=== PATIENT | female | born 1990 | race Hispanic/Latino ===

== ENCOUNTER 2018-03-10 09:26 | Emergency (ER) | payer SELFPAY ==
[~2018-03-10] VITALS: Ht 160 cm; Wt 90.3 kg
[2018-03-10] MEDS ORDERED: SODIUM CHLORIDE 0.9% 1000ML 1,000 ML IV STA (09:33)
[2018-03-10 10:01] LABS: BASOPHILS % 0.2 % (0.0-1.0); EOSINOPHILS % 0.2 % (0.0-6.0); HEMATOCRIT 31.6 % (34.2-44.1); HEMOGLOBIN 9.8 g/dL (12.0-16.0); LYMPHOCYTES # (AUTO) 0.9 (1.0-3.2); LYMPHOCYTES % 8.8 % (18.0-39.1); MEAN CORPUSCULAR HEMOGLOBIN 25.5 pg (28-32); MEAN CORPUSCULAR VOLUME 82.3 fL (81-99); MONOCYTES # (AUTO) 0.4 (0.2-0.8); MONOCYTES % 3.8 % (4.4-11.3); NEUTROPHILS # (AUTO) 9.1 (2.1-6.9); NEUTROPHILS % 86.5 % (38.7-80.0); PLATELET COUNT 251 x10e3/uL (140-360); RED BLOOD COUNT 3.84 x10e6/uL (3.6-5.1); RED CELL DISTRIBUTION WIDTH 19.2 % (11.7-14.4)
[2018-03-10] MEDS ORDERED: FAMOTIDINE 20 MG/2 ML VIAL IV ONE (10:15)
[2018-03-10] MEDS ORDERED: ONDANSETRON HCL INJ 2 MG/ML VIAL IV ONE (10:15)
[2018-03-10] MEDS ORDERED: KETOROLAC TROMETHAMINE 30 MG/ML VIAL IV ONE (10:15)
[2018-03-10 10:21] LABS: ALANINE AMINOTRANSFERASE 8 IU/L (0-55); ALBUMIN 3.9 g/dL (3.5-5.0); ALBUMIN/GLOBULIN RATIO 1.2 (0.8-2.0); ALKALINE PHOSPHATASE 38 IU/L (40-150); AMYLASE 41 U/L (25-125); ANION GAP 12.8 mmol/L (8-16); BLOOD UREA NITROGEN 11 mg/dL (7-26); BUN/CREATININE RATIO 13 (6-25); CALCIUM 9.1 mg/dL (8.4-10.2); CARBON DIOXIDE 23 mmol/L (22-29); CHLORIDE 108 mmol/L (98-107); CREATININE, SERUM 0.83 mg/dL (0.57-1.11); EST GLOMERULAR FILTRATION RATE > 60 ML/MIN (60-); GLUCOSE 127 mg/dL (74-118); LIPASE 18 U/L (8-78); POTASSIUM 3.8 mmol/L (3.5-5.1); SODIUM 140 mmol/L (136-145)
[2018-03-10 12:22] LABS: AMYLASE 41 U/L (25-125); LIPASE 18 U/L (8-78)
--- NOTE | 2018-03-10 13:03 | Diagnostic Imaging Report ---
EXAM: Obstetric Pelvic Ultrasound INDICATION: ^, look for ectopic COMPARISON: None TECHNIQUE: Transabdominal and transvaginal evaluation of the pelvis was performed in the transverse and longitudinal planes. CLINICAL HISTORY: 27 year old GG1, P1, A0; last menstrual period: 02/01/2018 FINDINGS: Uterus: Orientation: Normal Size: 8.2 x 4.2 x 4.9 cm, normal Mass: None Cervix: Nabothian cyst Endometrial stripe: 0.8 cm. Homogeneous echotexture, without focal thickening. Gestational Sac: Not visualized. Yolk sac: Not visualized Embryo/Fetus: None visualized Right ovary Size: 2.5 x 2.7 x 2.4 cm Mass/Cyst: None. Normal follicles are identified. Left ovary Size: 7.5 x 4.5 x 4.5 cm Mass/Cyst: 3.9 x 2.8 x 3.2 cm cystic, anechoic nonvascular lesion in the left ovary Cul-de-sac: Moderate free fluid is noted in the pelvic cul-de-sac. IMPRESSION: 1. No intrauterine gestational sac or pole is identified. No sonographic evidence of ectopic . This may represent a of unknown location IF the patient has a positive urine or serum test, in which case, a follow-up transvaginal ultrasound is recommended in one week. 2. Moderate free fluid in the pelvic cul-de-sac. 3. 3.9 cm simple follicular cyst in the left ovary. No further follow-up is indicated. classification: Viable: can potentially result in a liveborn baby Visualized embryo with FHT Nonviable: Findings diagnostic of failure Ectopic CRL >= 7 mm and no FHT MSD >= 25 mm and no embryo No FHT >= 2 weeks after US showed GS w/o YS No FHT >= 11 days after US showed GS w/ YS Intrauterine of uncertain viability: Intrauterine GS with no FHT and no definite findings of failure of unknown location: Positive urine or serum test and no IUP or ectopic on US ?@ Diagnostic Criteria for Nonviable Early in the First Trimester N Engl J Med 2013;369:1443-51. DOI: [id number] Signed by: Dr. Evans Antony M.D. on 03/10/2018 1:00 PM
[2018-03-10 13:12] LABS: BACTERIA,URINE MODERATE /HPF; BILIRUBIN,URINE NEGATIVE (NEGATIVE); CLARITY,URINE HAZY (CLEAR); COLOR,URINE YELLOW (YELLOW); EPITHELIAL CELLS,URINE FEW /LPF; KETONES,URINE 1+ (NEGATIVE); LEUKOCYTE ESTERASE ,URINE NEGATIVE (NEGATIVE); NITRITE,URINE NEGATIVE (NEGATIVE); PROTEIN,URINE DIPSTICK NEGATIVE (NEGATIVE); URINE UROBILINOGEN 0.2 mg/dL (0.2 - 1); WBC,URINE (MAN) 21-50 /HPF (0-5)
[2018-03-10] MEDS ORDERED: CEFTRIAXONE SOD 1 GM VIAL IV ONE (14:30)
[2018-03-10 14:31] VITALS: BP 112/60
== END 2018-03-10 15:15 | disposition home or self-care (01) ==
LOC: ER 09:26
DX: R10.84 Generalized abdominal pain (principal); R11.0 Nausea; N30.90 Cystitis, unspecified without hematuria; Z33.1 Pregnant state, incidental
CPT/HCPCS: 36415; 76817; 80053; 81001; 82150; 83690; 84702; 85025; 86900; 93005; 99284; J1885; J2405; J7030